=== PATIENT | male | born 1940 | race Caucasian/White ===

== ENCOUNTER 2017-02-06 07:30 | Day surgery (SDC) | payer OTHER ==
--- NOTE | ~2017-02-06 | EGD ---
EGD REPORT [facility] [address] [address] NAME: JUAN INTERIANO : [birth year] STATUS : REG [facility]#: [id number] AGE: 76 ADM/REG DATE : 02/06/17 MR#: [id number] REPORT SERV DATE: 02/06/17 DICTATED BY: TAMIKA MARQUEZ DATE: 02/06/17 REPORT STATUS : Draft [facility] BY: [facility] DATE: 02/06/17 [facility] Center Patient Name: Juan Interiano Date of : 1940 Attending MD: TAMIKA MARQUEZ MD Procedure Date No Time: 02/06/2017 Procedure: Colonoscopy Indications: Colon cancer screening in patient at increased risk: Family history of colon polyps Referring MD: REINA HERNANDEZ MD Medicines: as per anesthesia Complications: No immediate complications. Procedure: Pre-Anesthesia Assessment: - ASA Grade Assessment: II - A patient with mild systemic disease. After I obtained informed consent, the scope was passed under direct vision. Throughout the procedure, the patient's blood pressure, pulse, and oxygen saturations were monitored continuously. The PCF [id number] was introduced through the anus and advanced to the cecum, identified by appendiceal orifice and ileocecal valve. The colonoscopy was somewhat difficult due to significant looping and a tortuous colon. The patient tolerated the procedure. The quality of the bowel preparation was adequate to identify polyps. Findings: The perianal and digital rectal examinations were normal. A sessile polyp was found in the ascending colon. The polyp was 3 mm in size. The polyp was removed with a cold biopsy forceps. Resection and retrieval were complete. A few medium-mouthed diverticula were found in the sigmoid colon and in the ascending colon. Internal hemorrhoids were found during endoscopy and were mild. Impression: - One 3 mm polyp in the ascending colon. Resected and retrieved. - Diverticulosis in the sigmoid colon and in the ascending colon. - Internal hemorrhoids. Recommendation: - Await pathology results. Procedure Code(s): --- Professional --- 27539, Colonoscopy, flexible, proximal to splenic EGD REPORT [facility] [address] [place] [address] NAME: JUAN INTERIANO : [birth year] STATUS : REG [facility] PAT#: [id number] AGE: 76 ADM/REG DATE : 02/06/17 MR#: [id number] REPORT SERV DATE: 02/06/17 DICTATED BY: TAMIKA MARQUEZ. DATE: 02/06/17 REPORT STATUS : Draft TRANSCRIBED BY: [employer] DATE: 02/06/17 flexure; with biopsy, single or multiple Diagnosis Code(s): --- Professional --- D12.2, Benign neoplasm of ascending colon K64.8, Other hemorrhoids K57.30, Diverticulosis of large intestine without perforation or abscess without bleeding Z12.11, Encounter for screening for malignant neoplasm of colon Z83.71, Family history of colonic polyps CPT copyright 2013 [employer]. All rights reserved. The codes documented in this report are preliminary and upon inspection supervisor review may be revised to meet current compliance requirements. TAMIKA MARQUEZ MD 02/06/2017 10:55 AM This report has been signed electronically. Number of Addenda: 0 Note Initiated On: 02/06/2017 10:07 AM Scope Withdrawal Time 0 hours 14 minutes 27 seconds [address] [place] [address]
[~2017-02-06 07:30] MED LIST: ACTOS15 PO; ASAB PO; CENTRUM PO; HYZAAR1 TAB PO; LOPID6 PO; LOTENSIN HCT1 TA2 PO; PRAVAC PO
== END 2017-02-06 23:59 | disposition home or self-care (01) ==
LOC: DMU 07:30
PROVIDERS: Internal Medicine Gastroenterology
PROC: 0DBK8ZX Excision of Ascending Colon, Via Natural or Artificial Opening Endoscopic, Diagnostic (ICD-10-PCS; principal; 2017-02-06 09:00)
DX: Z12.11 Encounter for screening for malignant neoplasm of colon (principal); D12.2 Benign neoplasm of ascending colon; K64.8 Other hemorrhoids; K57.30 Diverticulosis of large intestine without perforation or abscess without bleeding; I10 Essential (primary) hypertension; E11.9 Type 2 diabetes mellitus without complications; Z83.71 Family history of colonic polyps; Z88.5 Allergy status to narcotic agent
CPT/HCPCS: 82962; 88305